=== PATIENT | male | born 1940 | race Caucasian/White ===

== ENCOUNTER 2022-07-29 13:15 | Inpatient (IN) | payer MEDICARE, OTHER ==
[2022-07-29] VITALS (8 sets, daily range): BP systolic 130–150; BP diastolic 39–67
[~2022-07-29] VITALS: Ht 172.7 cm; Wt 90.0 kg
[2022-07-29 13:59] LABS: Basophils # (auto) 0 10 ^3/uL (0-0.2); Basophils % (auto) 0.3 % (0.0-2.0); Eosinophils # (auto) 0 10 ^3/uL (0-0.8); Eosinophils % (auto) 0.4 % (0.0-7.0); Hematocrit 41.4 % (41.0-53.0); Hemoglobin 14.5 g/dL (13.5-17.5); Lymphocytes # (auto) 1.4 10 ^3/uL (0.4-5.4); Lymphocytes % (auto) 16.1 % (10.0-50.0); Mean Corpuscular Hemoglobin 33.1 pg (28.0-32.0); Mean Corpuscular Volume 94.4 fL (80.0-100.0); Monocytes # (auto) 0.3 10 ^3/uL (0-1.3); Monocytes % (auto) 3.1 % (0.0-12.0); Neutrophils # (auto) 6.9 10 ^3/uL (1.6-8.6); Neutrophils % (auto) 80.1 % (37.0-80.0); Nucleated Red Blood Cells % 0.4 %; Red Blood Cells 4.38 10^6/uL (4.5-5.90); Red Cell Distribution Width 12.7 % (11.8-14.3); White Blood Cell 8.7 10^3/uL (4.4-10.8)
[2022-07-29 14:19] LABS: Albumin 3.6 g/dL (3.4-5.0); Calcium 8.8 mg/dL (8.5-10.1); Magnesium 2.2 mg/dL (1.6-2.6); Potassium 4.3 mmol/L (3.5-5.1)
[2022-07-29 14:24] LABS: Lactic Acid w/Reflex 3.2 mmol/L (0.4-2.0)
[2022-07-29 14:35] LABS: BUN/Creatinine Ratio 24.4 (10.0-20.0); Bilirubin, Total 0.6 mg/dL (0.2-1.0); Total Protein 6.3 g/dL (6.4-8.2)
[2022-07-29] MEDS ORDERED: FUROSEMIDE 40 MG/4 ML VIAL IV ONE (14:45)
[2022-07-29] MEDS ORDERED: HEPARIN DRIP/D5W 100UNITS/ML 250 ML IV SCH (14:45)
[2022-07-29] MEDS ORDERED: NITROGLYCERIN 50MG/250ML 250 ML IV ONE (14:45)
[2022-07-29] MEDS ORDERED: HEPARIN SODIUM (PORCINE) 5000 UNITS/ML 1ML VIAL IV ONE (14:45)
[2022-07-29 15:11] LABS: INR 1.03 (0.9-1.15); Partial Thromboplastin Time 27.3 sec (24.6-33.4)
[2022-07-29] MEDS ORDERED: ONDANSETRON HCL 4 MG/2 ML VIAL IV PRN (15:45)
[2022-07-29] MEDS ORDERED: MORPHINE SULFATE 4 MG/ML SYR/VIAL IV PRN (15:45)
[2022-07-29] MEDS ORDERED: ACETAMINOPHEN 325 MG TAB PO PRN (15:45)
[2022-07-29] MEDS ORDERED: DEXTROSE (50%) 50ML SYRG IV PRN (16:00)
[2022-07-29] MEDS ORDERED: ANGIOMAX 250 MG VIAL IV ONE (16:32)
[2022-07-29] MEDS ORDERED: VERAPAMIL 2.5MG/ML INJ 2ML VIAL IV ONE (16:32)
[2022-07-29] MEDS ORDERED: LIDOCAINE 2%HCL (LOCAL ANESTH.) INJ 20ML MDV ONE (16:33)
[2022-07-29] MEDS ORDERED: fentaNYL CITRATE 100 MCG/2 ML VL ONE (16:33)
[2022-07-29] MEDS ORDERED: MIDAZOLAM HCL 2MG/2ML 2ml VIAL (1mg/ml) ONE (16:33)
[2022-07-29] MEDS ORDERED: SODIUM CHL 0.9% 50 ML ONE (16:33)
[2022-07-29] MEDS ORDERED: IODIXANOL 320MG/ML 100ML BTL IV ONE (16:36)
[2022-07-29 16:53] LABS: Cholesterol 166 mg/dL (< 200)
[2022-07-29 16:56] LABS: HDL Cholesterol 27 mg/dL (40-59); LDL Cholesterol 116 mg/dL (< 100); Triglycerides 139 mg/dL (< 150)
[2022-07-29] MEDS ORDERED: ATROPINE SULF 1 MG/10ml SYR ONE (17:52)
[2022-07-29] MEDS ORDERED: EPINEPHrine HCL 1 MG/10 ML SYRG ONE (17:52)
[2022-07-29] MEDS ORDERED: TICAGRELOR 90 MG TAB ONE (18:11)
[2022-07-29] MEDS ORDERED: hydrALAZINE HCL 20 MG/ML VL ONE (18:24)
[2022-07-29] MEDS ORDERED: MORPHINE SULFATE INJ 2 MG/ml SYRG ONE (19:07)
[2022-07-29] MEDS: cefTRIAXone 1GM/50ML D5W 50 ML IV SCH (19:41)
[2022-07-29] MEDS: ACCU-CHEK COMFORT CURVE STRIP VI SCH (19:55)
[2022-07-29] MEDS: InsuLIN REG 1unit/0.01ml Soln (100units/ml) SC SCH (20:00)
[2022-07-29] MEDS ORDERED: MET50T PO (21:01)
[2022-07-29] MEDS ORDERED: METF-869 PO (21:01)
[2022-07-29] MEDS ORDERED: GLIP5TAB12 PO (21:01)
[2022-07-29] MEDS ORDERED: CLON0.1T PO (21:02)
[2022-07-29] MEDS ORDERED: LOSA-69 PO (21:02)
[2022-07-29] MEDS ORDERED: TAMS0.4C36 PO (21:02)
[2022-07-29] MEDS: AZITHROMYCIN 500MG/ 250ML 250 ML IV SCH (21:30)
[2022-07-29] MEDS ORDERED: TICAGRELOR 90 MG TAB PO SCH (22:00)
[2022-07-29] MEDS: METOPROLOL TARTRATE 25 MG TAB PO SCH (22:37)
[2022-07-29] MEDS: ATORVASTATIN 20 MG TAB PO SCH (22:37)
[2022-07-30] MEDS: InsuLIN REG 1unit/0.01ml Soln (100units/ml) SC SCH ×5 (00:01→21:47)
[2022-07-30] MEDS: ACCU-CHEK COMFORT CURVE STRIP VI SCH ×5 (00:06→21:57)
[2022-07-30 05:00] VITALS: BP 138/70
[2022-07-30 08:12] LABS: Basophils # (auto) 0 10 ^3/uL (0-0.2); Basophils % (auto) 0.2 % (0.0-2.0); Eosinophils # (auto) 0 10 ^3/uL (0-0.8); Eosinophils % (auto) 0.4 % (0.0-7.0); Hemoglobin 15.3 g/dL (13.5-17.5); Lymphocytes # (auto) 2.2 10 ^3/uL (0.4-5.4); Lymphocytes % (auto) 19.5 % (10.0-50.0); Mean Corpuscular Hemoglobin 32.7 pg (28.0-32.0); Mean Corpuscular Hgb Conc. 35.5 g/dL (32.0-36.0); Mean Corpuscular Volume 92.2 fL (80.0-100.0); Monocytes # (auto) 0.9 10 ^3/uL (0-1.3); Monocytes % (auto) 8.2 % (0.0-12.0); Neutrophils # (auto) 7.9 10 ^3/uL (1.6-8.6); Neutrophils % (auto) 71.7 % (37.0-80.0); Nucleated Red Blood Cells % 0.1 %; Red Blood Cells 4.67 10^6/uL (4.5-5.90); Red Cell Distribution Width 12.8 % (11.8-14.3); White Blood Cell 11.1 10^3/uL (4.4-10.8)
[2022-07-30 08:28] LABS: Calcium 8.7 mg/dL (8.5-10.1); Potassium 3.5 mmol/L (3.5-5.1)
[2022-07-30 08:31] LABS: BUN/Creatinine Ratio 21.5 (10.0-20.0)
[2022-07-30 08:56] VITALS: BP 136/75
[2022-07-30] MEDS ORDERED: FUROSEMIDE 20 MG/2 ML VIAL IV ONE (09:45)
[2022-07-30] MEDS ORDERED: POTASSIUM CHL 20 Meq TABLET PO ONE (09:45)
[2022-07-30] MEDS ORDERED: PANTOPRAZOLE 40 MG/10 ML VIAL INJ IV SCH (10:00)
[2022-07-30] MEDS: FUROSEMIDE 20 MG/2 ML VIAL IV SCH (10:00)
[2022-07-30] MEDS: AZITHROMYCIN 500MG/ 250ML 250 ML IV SCH (10:05)
[2022-07-30] MEDS: cefTRIAXone 1GM/50ML D5W 50 ML IV SCH (10:06)
[2022-07-30] MEDS: DOCUSATE SOD 100 MG CAP PO SCH (10:07)
[2022-07-30] MEDS: ASPirin 81 mg TAB PO SCH (10:08)
[2022-07-30] MEDS: TICAGRELOR 90 MG TAB PO SCH ×2 (10:08→21:47)
[2022-07-30] MEDS: METOPROLOL TARTRATE 25 MG TAB PO SCH (10:15)
[2022-07-30 11:09] LABS: Hepatitis C Antibody Negative (Negative)
[2022-07-30] MEDS ORDERED: DEXTROSE (50%) 50ML SYRG IV PRN (12:00)
[2022-07-30] MEDS ORDERED: LORazepam 0.5 MG TAB PO PRN (14:30)
[2022-07-30] MEDS ORDERED: TEMAZEPAM 15 MG CAP PO PRN (14:30)
[2022-07-30 17:00] VITALS: BP 151/75
[2022-07-30] MEDS ORDERED: InsuLIN REG 1unit/0.01ml Soln (100units/ml) SC SCH (17:00)
[2022-07-30 17:29] LABS: Urine Bacteria NONE SEEN /hpf (None Seen); Urine Blood Negative /uL (Negative); Urine Specific Gravity 1.021 (1.001-1.035); Urine WBC 25 /hpf (0 - 3)
[2022-07-30] MEDS: ATORVASTATIN 20 MG TAB PO SCH (21:41)
[2022-07-30] MEDS: LOSARTAN POTASSIUM 50 MG TAB PO SCH (21:42)
[2022-07-30] MEDS: METOPROLOL TARTRATE 50 MG TAB PO SCH (21:57)
[2022-07-30 22:00] VITALS: BP 122/71
[2022-07-31 05:00] VITALS: BP 138/64
[2022-07-31 05:57] LABS: BUN/Creatinine Ratio 18.9 (10.0-20.0); Calcium 8.6 mg/dL (8.5-10.1); Potassium 3.9 mmol/L (3.5-5.1)
[2022-07-31] MEDS: ACCU-CHEK COMFORT CURVE STRIP VI SCH ×2 (06:18→12:32)
[2022-07-31] MEDS: InsuLIN REG 1unit/0.01ml Soln (100units/ml) SC SCH ×2 (06:22→12:32)
[2022-07-31 09:00] VITALS: BP 117/66
[2022-07-31] MEDS: DOCUSATE SOD 100 MG CAP PO SCH (10:00)
[2022-07-31] MEDS ORDERED: AZITHROMYCIN 250 MG TAB PO SCH (10:00)
[2022-07-31] MEDS ORDERED: PANTOPRAZOLE 40 MG TAB PO SCH (10:00)
[2022-07-31] MEDS: cefTRIAXone 1GM/50ML D5W 50 ML IV SCH (10:25)
[2022-07-31] MEDS: TICAGRELOR 90 MG TAB PO SCH (10:26)
[2022-07-31] MEDS: ASPirin 81 mg TAB PO SCH (10:26)
[2022-07-31] MEDS: FUROSEMIDE 20 MG/2 ML VIAL IV SCH (10:26)
[2022-07-31] MEDS: LOSARTAN POTASSIUM 50 MG TAB PO SCH (10:27)
[2022-07-31] MEDS: METOPROLOL TARTRATE 50 MG TAB PO SCH (10:27)
[2022-07-31] MEDS ORDERED: POTA-167 PO ×3 (12:59→15:11)
[2022-07-31] MEDS ORDERED: ATOR20TA50 PO ×3 (12:59→15:11)
[2022-07-31] MEDS ORDERED: FURO1TAB33 PO ×3 (12:59→15:11)
[2022-07-31] MEDS ORDERED: TICA90TA PO ×3 (12:59→15:11)
[2022-07-31] MEDS ORDERED: AZIT250T9 PO ×3 (12:59→15:11)
[2022-07-31] MEDS ORDERED: ASPI-325 PO ×3 (12:59→15:11)
[2022-07-31 15:42] VITALS: BP 102/60
== END 2022-07-31 17:02 | disposition home or self-care (01) | DRG 246 ==
LOC: ER 13:15 → EDBD 13:15 → TELE 15:48 → TELE-WESTW 20:28
PROVIDERS: ADMIT Nurse Practitioner Family; ATTEND Internal Medicine
PROC: 027034Z Dilation of Coronary Artery, One Artery with Drug-eluting Intraluminal Device, Percutaneous Approach (ICD-10-PCS; principal; 2022-07-29)
PROC: 4A023N7 Measurement of Cardiac Sampling and Pressure, Left Heart, Percutaneous Approach (ICD-10-PCS; 2022-07-29)
PROC: B211YZZ Fluoroscopy of Multiple Coronary Arteries using Other Contrast (ICD-10-PCS; 2022-07-29)
PROC: B215YZZ Fluoroscopy of Left Heart using Other Contrast (ICD-10-PCS; 2022-07-29)
PROC: B241ZZ3 Ultrasonography of Multiple Coronary Arteries, Intravascular (ICD-10-PCS; 2022-07-29)
PROC: B311YZZ Fluoroscopy of Right Brachiocephalic-Subclavian Artery using Other Contrast (ICD-10-PCS; 2022-07-29)
DX: I21.09 ST elevation (STEMI) myocardial infarction involving other coronary artery of anterior wall (principal); I50.41 Acute combined systolic (congestive) and diastolic (congestive) heart failure; J15.9 Unspecified bacterial pneumonia; I11.0 Hypertensive heart disease with heart failure; E66.9 Obesity, unspecified; E78.5 Hyperlipidemia, unspecified; I44.7 Left bundle-branch block, unspecified; Z20.822 Contact with and (suspected) exposure to COVID-19; R00.1 Bradycardia, unspecified; F41.9 Anxiety disorder, unspecified; N40.0 Benign prostatic hyperplasia without lower urinary tract symptoms; Z79.82 Long term (current) use of aspirin; Z79.899 Other long term (current) drug therapy; Z83.3 Family history of diabetes mellitus; Z85.46 Personal history of malignant neoplasm of prostate; Z98.61 Coronary angioplasty status; Z68.30 Body mass index [BMI] 30.0-30.9, adult
CPT/HCPCS: 36225; 36415; 71045; 80048; 80053; 80061; 81001; 82010; 82962; 83036; 83605; 83735; 83880; 84100; 84443; 84484; 85025; 85610; 85730; 86803; 87340; 87426; 87804; 92941; 92978; 93005; 93306; 93458; 93970; 96365; 96368; 96375; 96376; 99152; 99153; 99291; C9113; G0378; J0696; J1815; J2250; Q9967